=== PATIENT | female | born 1955 | race Caucasian/White ===

== ENCOUNTER → 2018-01-06 11:22 | Outpatient (CLI) | payer MEDICARE, OTHER, SELFPAY ==
[2018-01-06 12:56] LABS: HCT 34.9 % (36.0-46.0); HGB 12.1 g/dL (12.0-15.5); Mean Corp. HGB Concentration 34.7 g/dL (32.0-36.0); Mean Corpuscular Hemoglobin 28.2 pg (27.0-33.0); Mean Corpuscular Volume 81.4 fL (80-95); Mean Platelet Volume 9.2 fL (8.0-11.0); Platelet Count 335 x1000/uL (130-400); RBC 4.29 m/cumm (4.00-5.20); RBC Distribution Width 12.5 % (11.7-14.6); White Blood Cell Count 4.88 k/cumm (4.4-10.8)
[2018-01-06 13:06] LABS: ALT 30 U/L (12-78); AST 25 U/L (15-37); Albumin 3.5 g/dL (3.4-5.0); Alkaline Phosphatase 137 U/L (46-116); Anion Gap 8.5 mmol/L (3-11); BUN 7 mg/dL (7-18); Bilirubin, Total 0.3 mg/dL (0.2-1.0); CO2 29.5 mmol/L (21.0-32.0); CREATININE 0.51 mg/dL (0.55-1.02); Chloride 103 mmol/L (98-107); FREE T4 2.04 ng/dL (0.76-1.46); Glucose 95 mg/dL (70-100); Hemoglobin A1C 6.5 % (4.5-6.2); Sodium 141 mmol/L (136-145); Total Protein 6.8 g/dL (6.4-8.2)
[2018-01-06 13:16] LABS: COMMENT (LAB VIEW ONLY) 126.96 mg/dL; Microalb ug/mg Crea 27.3 ug/mg Cr
[2018-01-06 13:31] LABS: Vitamin D 25 Total 39.2 ng/ml (30-100)
[2018-01-06 13:43] LABS: Cholesterol 243 mg/dL (50-200); HDL Cholesterol 41 mg/dL (40-60); LDL CHOLESTEROL 175 mg/dL (<100); Triglyceride 152 mg/dL (30-150)
== END ==
PROVIDERS: PCP Family Medicine; Visit Provider Family Medicine
DX: E03.9 Hypothyroidism, unspecified (principal); E11.9 Type 2 diabetes mellitus without complications; E78.00 Pure hypercholesterolemia, unspecified; I10 Essential (primary) hypertension; E55.9 Vitamin D deficiency, unspecified; E23.0 Hypopituitarism; G40.909 Epilepsy, unspecified, not intractable, without status epilepticus
CPT/HCPCS: 36415; 80053; 80061; 82306; 83721; 85027; 82043; 82570; 83036; 84439

== ENCOUNTER → 2018-01-06 11:43 | Outpatient (REF) | payer MEDICARE, OTHER, SELFPAY ==
--- NOTE | 2018-01-06 11:00 | PAPFT_PTH ---
PATIENT: Jodie Peacock LOC: [facility] U#:[id number] AGE/SX: 70/F ROOM: RE01/06/[address]: Gladys Arenas MD, DC : 1955 BED: DIS: SPEC #: [id number] RECD: 01/06/18 12:48 STATUS: ARIEL KILLIAN #: [id number] ILIA: 01/06/18 11:[address]: Gladys Arenas DEPT: [facility] Cytology RECD BY: Mackenzie Garcia Tissues: 1 - CX/ENDOCX FOR PAP SMEARS Procedures: PAP THIN PREP/UVM Screening HPV DNA PROBE Comments: [id number]
== END ==
LOC: LBN 11:43
PROVIDERS: PCP Family Medicine; Visit Provider Family Medicine
DX: Z12.4 Encounter for screening for malignant neoplasm of cervix (principal); Z11.51 Encounter for screening for human papillomavirus (HPV)
CPT/HCPCS: 88142; 87624

== ENCOUNTER 2018-04-18 12:46 | Outpatient (CLI) | payer MEDICARE, OTHER, SELFPAY ==
[2018-04-18 14:03] LABS: Hemoglobin A1C 5.9 % (4.5-6.2)
== END 2018-04-18 13:06 ==
PROVIDERS: PCP Family Medicine; Visit Provider Family Medicine
DX: E11.9 Type 2 diabetes mellitus without complications (principal)
CPT/HCPCS: 36415; 83036

== ENCOUNTER 2018-08-22 01:38 | Outpatient (CLI) | payer MEDICARE, SELFPAY ==
[2018-08-22 15:03] LABS: TROPONIN-I 6.5 ug/mL (4.0-12.0)
[2018-08-22 15:12] LABS: Hemoglobin A1C 6.4 % (4.5-6.2)
[2018-08-22 15:23] LABS: Vitamin D 25 Total 40.1 ng/ml (30-100)
[2018-08-22 15:28] LABS: FREE T4 1.59 ng/dL (0.76-1.46)
== END 2018-08-22 01:58 ==
PROVIDERS: PCP Family Medicine; Visit Provider Family Medicine
DX: E11.9 Type 2 diabetes mellitus without complications (principal); M85.80 Other specified disorders of bone density and structure, unspecified site; E78.00 Pure hypercholesterolemia, unspecified; D64.9 Anemia, unspecified; G40.909 Epilepsy, unspecified, not intractable, without status epilepticus; Z51.81 Encounter for therapeutic drug level monitoring; E03.9 Hypothyroidism, unspecified
CPT/HCPCS: 36415; 82306; 80156; 83036; 84439

== ENCOUNTER 2019-01-10 01:32 | Outpatient (CLI) | payer MEDICARE, SELFPAY ==
[2019-01-10 08:17] LABS: Hemoglobin A1C 5.9 % (4.5-6.2)
== END 2019-01-10 01:52 ==
PROVIDERS: PCP Family Medicine; Visit Provider Family Medicine
DX: E03.9 Hypothyroidism, unspecified (principal); E11.9 Type 2 diabetes mellitus without complications; E23.0 Hypopituitarism
CPT/HCPCS: 36415; 83036; 84439

== ENCOUNTER 2019-01-23 00:58 | Outpatient (CLI) | payer MEDICARE, SELFPAY ==
--- NOTE | 2019-01-23 15:03 | DI.MAMMO_ITS ---
SYMPTOMS/DIAGNOSIS: SCREENING, Z12.31 MAMMOGRAMS: Mammograms were interpreted according to the usual protocol including computer analysis with CAD system, tomosynthesis and C view imaging. The breasts are of moderate density with fairly symmetrical distribution of fibroglandular tissue. No dominant mass or clumped microcalcification is identified in either breast. Current examination is compared with previous examinations including November 2016 and there has been no gross interval change in appearance in comparison with the previous studies. CONCLUSION: No specific evidence of malignancy at this time. Routine screening examinations are suggested at yearly intervals in this age group according to the ACS/ACR guidelines. Category 1, breast density category B. MQSA ASSESSMENT OF FINDINGS: Negative. Category 1. Patient will receive a letter notifying them of these results. BI-RADS category B. There are scattered areas of fibroglandular density.
== END 2019-01-23 01:18 ==
PROVIDERS: PCP Family Medicine; Visit Provider Family Medicine
DX: Z12.31 Encounter for screening mammogram for malignant neoplasm of breast (principal)
CPT/HCPCS: 77063; 77067

== ENCOUNTER 2019-12-19 03:44 | Outpatient (CLI) | payer MEDICARE, SELFPAY ==
[2019-12-19 08:17] LABS: HCT 35.2 % (36.0-46.0); Mean Corp. HGB Concentration 34.1 g/dL (32.0-36.0); Mean Corpuscular Volume 82.1 fL (80-95); Mean Platelet Volume 8.5 fL (8.0-11.0); Platelet Count 369 x1000/uL (130-400); RBC 4.29 m/cumm (4.00-5.20); RBC Distribution Width 12.8 % (11.7-14.6); White Blood Cell Count 5.39 k/cumm (4.4-10.8)
[2019-12-19 08:44] LABS: ALT 23 U/L (14-59); AST 19 U/L (15-37); Albumin 3.5 g/dL (3.4-5.0); Alkaline Phosphatase 113 U/L (46-116); Anion Gap 7.8 mmol/L (3-11); BUN 6 mg/dL (7-18); Bilirubin, Total 0.3 mg/dL (0.2-1.0); CO2 29.2 mmol/L (21.0-32.0); CREATININE 0.58 mg/dL (0.55-1.02); Calcium 8.8 mg/dL (8.5-10.1); Calculated LDL 183 mg/dL (<100); Chloride 103 mmol/L (98-107); Cholesterol 250 mg/dL (<200); Glucose 94 mg/dL (74-106); HDL Cholesterol 48 mg/dL (40-60); Potassium 4.2 mmol/L (3.5-5.1); Sodium 140 mmol/L (136-145); Total Protein 6.4 g/dL (6.4-8.2); Triglyceride 96 mg/dL (<150)
[2019-12-19 09:04] LABS: FREE T4 1.26 ng/dL (0.76-1.46)
[2019-12-21 04:53] LABS: Vitamin D 25 Total 32.4 ng/ml (30-100)
== END 2019-12-19 04:04 ==
PROVIDERS: PCP Family Medicine; Visit Provider Family Medicine
DX: E03.9 Hypothyroidism, unspecified (principal); E11.9 Type 2 diabetes mellitus without complications; G40.909 Epilepsy, unspecified, not intractable, without status epilepticus; I10 Essential (primary) hypertension; M85.80 Other specified disorders of bone density and structure, unspecified site
CPT/HCPCS: 36415; 80053; 80061; 82306; 85027; 83036; 84439

== ENCOUNTER 2020-07-18 17:17 | Emergency (ER) | payer MEDICARE, SELFPAY ==
[2020-07-18] VITALS (19 sets, daily range): BP systolic 123–159; BP diastolic 51–92; PULSE 61–71; RESP 12–23; TEMP 36.6; O2SAT 97–100
--- NOTE | 2020-07-18 17:30 | DI.CT_ITS ---
EXAM: CT BRAIN NECK CTA CLINICAL HISTORY: Hx pituitary tumor, L sided headache. TECHNIQUE: Imaging Protocol: Axial CT angiography was performed with multi-slice acquisition and mu lti-planar and/or 3D reconstructions. CONTRAST MATERIAL: Intravenous: Omnipaque 350 Contrast volume:85 cc COMPARISON: No exams were available for comparison FINDINGS: CT Head W/O and w: Ventricles and Extra axial spaces: Normal in size and morphology for the patient's age. Hemorrhage: None. Cerebral parenchyma: Normal. Midline shift: None. Brainstem/Cerebellum: Normal. Calvarium: Normal. Visualized Paranasal sinuses/Mastoids: Clear. Soft Tissues: Unremarkable. Pituitary: 11 x 15 x 12 millimeter hyperdense mildly enhancing mass within the sella, consistent with a pituitary macroadenoma. Orbits: Unremarkable. CTA Brain W: Internal Carotid Arteries: Petrous: Normal. Cavernous: Normal. Cerebral: Normal. Middle Cerebral Arteries: Right: No aneurysm, occlusion or significant stenosis. Left: No aneurysm, occlusion or significant stenosis. Anterior Cerebral Arteries: Right: No aneurysm, occlusion or significant stenosis. Left: No aneurysm, occlusion or significant stenosis. Posterior cerebral Arteries: Right: No aneurysm, occlusion or significant stenosis. Left: No aneurysm, occlusion or significant stenosis. Vertebral Arteries: Right: No aneurysm, occlusion or significant stenosis. Left: No aneurysm, occlusion or significant stenosis. Basilar Artery: No aneurysm, occlusion or significant stenosis. CTA Neck W: Common Carotid: Right: No aneurysm, occlusion or significant stenosis. Left: No aneurysm, occlusion or significant stenosis. External Carotid: Right: No aneurysm, occlusion or significant stenosis. Left: No aneurysm, occlusion or significant stenosis. Internal Carotid: Right: No aneurysm, occlusion or significant stenosis. Left: No aneurysm, occlusion or significant stenosis. Vertebral Artery: Right: No aneurysm, occlusion or significant stenosis. Left: No aneurysm, occlusion or significant stenosis. Lung Apices: Normal. Bones: Normal. Soft Tissues: Normal. IMPRESSION: 1. Normal CTA examination of the [place]. 2. 11 x 15 x 12 millimeter pituitary mass, otherwise unremarkable CT Head. 3. Normal CTA examination of the neck. RADIATION DOSE DELIVERED: 1,902.59mGy.cm Total DLP DATA REPOSITORY: All CT scans at this facility are submitted to the National Radiology Data Registry (NRDR) Dose Index Registry (DIR) with the [employer] (ACR). RADIATION OPTIMIZATION: All CT scans at this facility use at least one of these dose optimization te chniques: automated exposure control; mA and/or kV adjustment per patient size (includes targeted exa ms where dose is matched to clinical indication); or iterative reconstruction.
--- NOTE | 2020-07-18 17:31 | ED.GENADUL_ITS ---
Discharge Plan Discharge Details Chief Complaint: Headache Primary Care Provider: Gladys Arenas ED Provider: Carter Bermudez Home Meds and New Rx's Prescriptions: No Action hydrocortisone 20 mg tablet 20 mg PO DAILY Qty: 90 RF: 12 lovastatin 40 mg tablet 80 mg PO HS Qty: 180 RF: 12 carbamazepine [Epitol] 200 mg tablet 200 mg PO TID Qty: 270 RF: 12 albuterol sulfate [ProAir HFA] 90 mcg/actuation HFA aerosol inhaler 2 puff Inhalation Q4H PRN Qty: 1 RF: 12 levothyroxine 137 mcg tablet 137 mcg PO DAILY Qty: 90 RF: 11 fluticasone propion-salmeterol [Wixela Inhub] 250-50 mcg/dose blister with device 1 inh IH DAILY Qty: 180 RF: 5 acetaminophen 500 mg Tablet 1,000 mg PO Q6H PRNRF: 0 Medical Decision Making 65-year-old female with a history of pituitary tumor presents with 3 days of left retroauricular headache which been constant and moderate to severe. She felt unsteadiness of gait today. She did not fall or injure herself. She is not had a fever or stiff neck. She arrives to the ER with blood pressure 158/88, afebrile, oxygenating normally with no cranial nerve deficits. She reported unsteadiness of gait and when asked to stand at the bedside By wax established, patient given acetaminophen, 2 mg of morphine, 50 mg of Solu-Cortef as well as Zofran. Referred for laboratory testing and CT images. CBC reveals a white count of 5, hematocrit 36, platelets 316. Sodium 135, potassium 3.6, chloride 98, BUN 6, creatinine 0.6. CT with and without IV contrast of the head and neck obtained which shows an 11 x 15 x 12 mm pituitary mass. Otherwise noted to be unremarkable. Patient observed and improved following medications and fluids. She no longer feels unsteadiness of gait as she had reported initially. She is able stand at the bedside and Romberg exam was negative. HPI General Mode of arrival: ambulatory . Date/Time Provider Initiated Documentation: 07/18/20 17:21 . Limitations to Documentation: no limitations . Information obtained by: patient . History of Present Illness 65 year old F presents to the emergency department with the chief complaint of Left retroauricular headache, described as severe, Quality is described as constant, and is localized to the head and left. Patient reports no radiation. Patient started experiencing this day(s) and it has been constant. No relieving factors improve symptom(s), No exacerbating factors reported . Patient notes denies nausea/vomiting and seizure. Related Data Home Medications Medication Instructions Recorded Confirmed albuterol sulfate 90 mcg/actuation 2 puff INHALATION Q4H PRN #1 11/03/19 07/18/20 aerosol inhaler canister carbamazepine 200 mg tablet 200 mg PO TID #270 tab-cap 11/03/19 07/18/20 hydrocortisone 20 mg tablet 20 mg PO DAILY #90 tab-cap 11/03/19 07/18/20 lovastatin 40 mg tablet 80 mg PO HS #180 tab-cap 11/03/19 07/18/20 levothyroxine 137 mcg tablet 137 mcg PO DAILY #90 tab-cap 11/15/19 07/18/20 fluticasone 250 mcg-salmeterol 50 1 inh IH DAILY #180 ea 04/25/20 07/18/20 mcg/dose blistr powdr for inhalation acetaminophen 1,000 mg PO Q6H PRN 07/18/20 07/18/20 Previous Rx's Medication Instructions Recorded albuterol sulfate 90 mcg/actuation 2 puff INHALATION Q4H PRN #1 11/03/19 aerosol inhaler canister carbamazepine 200 mg tablet 200 mg PO TID #270 tab-cap 11/03/19 hydrocortisone 20 mg tablet 20 mg PO DAILY #90 tab-cap 11/03/19 lovastatin 40 mg tablet 80 mg PO HS #180 tab-cap 11/03/19 levothyroxine 137 mcg tablet 137 mcg PO DAILY #90 tab-cap 11/15/19 fluticasone 250 mcg-salmeterol 50 1 inh IH DAILY #180 ea 04/25/20 mcg/dose blistr powdr for inhalation Allergies Allergy/AdvReac Type Severity Reaction Status Date / Time aspirin Allergy Intermediate Hives Unverified 07/18/20 17:28 chlordiazepoxide Allergy Intermediate Hives Unverified 07/18/20 17:28 ciprofloxacin Allergy Intermediate Hives Unverified 07/18/20 17:28 diazepam Allergy Intermediate Hives Unverified 07/18/20 17:28 prochlorperazine Allergy Intermediate Hives Unverified 07/18/20 17:28 Influenza Virus Vaccines Allergy Mild Unverified 07/18/20 17:28 azithromycin [From Zithromax] AdvReac Severe Stomach Unverified 07/18/20 17:28 benzonatate [Benzonatate] AdvReac Severe Unverified 07/18/20 17:28 illness/vomiting bisacodyl AdvReac Rectal Unverified 07/18/20 17:28 bleeding erythromycin base AdvReac Psychosis Unverified 07/18/20 17:28 [Erythromycin Base] phenytoin AdvReac N/V Unverified 07/18/20 17:28 Hymenoptera Allergy Hives Uncoded 07/18/20 17:28 General Stated Complaint: Headache AYAD: 2 Review of Systems Narrative: No fall or injury. [place] unsteadiness of gait today. No fever. [place] nauseated but no vomiting. 6 systems reviewed and otherwise negative. 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 ANTHONY LACEY Reflux esophagitis 02/25/15; EGD; DEEPTHI BAUTISTA Sprain of ankle (12/30/09) Vitamin D deficiency (09/16/12) Surgical History Colonoscopy - MAC (02/24/11) 30 CM TUBULAR ADENOMA [address] ANTHONY LACEY COLONOSCOPY/EGD W/MAC (02/25/15) DR.CHRIS LACEY Dilation and curettage (~1989) Status post dilation and curettage Family History (Updated 01/11/19 @ 10:35 by Judson Bansal) Mother , 79 Essential hypertension Heart disease Hyperlipidemia Bladder cancer Father , DEFECT at age 44. Essential hypertension Sister , SPINA BIFIDA No problems noted. Brother Essential hypertension Heart disease Paternal Grandfather , 82 Lung cancer Maternal Grandfather , Electorcuted Throat cancer Paternal Grandmother , 79 Diabetes Essential hypertension Heart disease Maternal Grandmother , 79 Diabetes Dementia Social History (Updated 01/11/19 @ 10:33 by Judson Bansal) Smoking/Tobacco Use Status: Never Smoking risk assessment performed?: Yes Alcohol Intake: never Drug use: Never Substance use type: does not use Caregiver/Support person: No Household members: spouse Housing: apartment Do you need help understanding health information?: Rarely Pets and animals: Yes Pets and animals: cat(s) Sexually active: Yes Do you think of yourself as: straight/heterosexual Current gender identity: female What is your relationship status?: How often do you talk on the phone with friends or family?: three or more times per week How often do you get together with friends or relatives?: three or more times per week How often do you attend jainism or latter-day services?: 4 or more times per year Do you belong to any clubs or organized social groups?: yes Panel score (0-1 are the most socially isolated patients): 4 What type of physical activity do you participate in: decline to answer Duration: 30-45 minutes/day Frequency: 5-6 times per week Radha/Amish: [employer] Special radha needs: No Seatbelt use: always Helmet use: Yes Helmet use: always 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 Pleasant, well groomed, interactive. HEAD: Normocephalic, atraumatic ENT: Mucous membranes moist, oropharynx unremarkable, External ear exam unremarkable EYES: PERRL, EOMI NECK: Full ROM, no RACHAEL, no menigismus CHEST/RESP: Nontender, clear to auscultation bilateral, no wheeze/rhonchi/rales CARDIOVASCULAR: RRR, no murmur, rub tracy. 2+ Rad pulse bilateral ABDOMEN: Soft, nontender, no mass. +Bowel sounds EXT: Full ROM, no edema, no rash Neuro: Grossly normal neurologic exam, conversant, interactive. Cranial nerves II through XII intact. No slurred speech. Psych: Speech fluent, thoughts congruent, affect normal Course Vital Signs Vital signs: Vital Signs Temperature 36.6 C 07/18/20 17:23 Pulse 71 07/18/20 17:23 Respiratory Rate 16 07/18/20 17:23 Blood Pressure 158/88 H 07/18/20 17:23 Pulse Oximetry 99 07/18/20 17:23 Temperature 36.6 C 07/18/20 17:23 Temperature Source Temporal Artery Scan 07/18/20 17:23 Pulse 71 07/18/20 17:23 Respiratory Rate 16 07/18/20 17:23 Respiratory Effort Non-Labored 07/18/20 17:27 Blood Pressure 158/88 H 07/18/20 17:23 Blood Pressure Position Supine 07/18/20 17:23 Pulse Oximetry 99 07/18/20 17:23 Oxygen Delivery Method Room Air 07/18/20 17:23 Oxygen Flow Rate 0 07/18/20 17:23 Pain Level 10 07/18/20 17:23
[2020-07-18 17:39] LABS: Abs Immature Grans 0.02 10^3/uL (0.0-0.06); Absolute Basophil Count 0.03 10^3/uL (0.0-0.2); Absolute Eosinophil Count 0.14 10^3/uL (0.0-0.7); Absolute Monocyte Count 0.53 10^3/uL (0.1-0.8); Absolute Neutrophil Count 2.16 10^3/uL (1.2-6.7); Basophils % 0.6; Eosinophils % 2.6; HCT 36.5 % (36.0-46.0); HGB 12.8 g/dL (11.2-15.7); Immature Grans % 0.4; Lymphocytes % 46.5; MCH 28.3 pg (27.0-33.0); MCHC 35.1 % (32.0-36.0); MCV 80.8 fL (80-95); MPV 8.3 fL (8.0-11.0); Monocytes % 9.9; Nucleated RBC 0 %; Platelet Count 316 10^3/uL (130-400); RBC 4.52 10^6/uL (3.93-5.22); RDW 12.2 % (11.7-14.6); RDW-SD 35.8 fL; WBC 5.38 10^3/uL (4.4-10.8)
[2020-07-18] MEDS: ACETAMINOPHEN 1,000 MG/100 ML BTL 400 MG IVPB (17:40)
[2020-07-18 17:54] LABS: ALT 22 U/L (14-59); AST 20 U/L (15-37); Albumin 3.8 g/dL (3.4-5.0); Alkaline Phosphatase 146 U/L (46-116); Anion Gap 6.6 mmol/L (3-11); BUN 6 mg/dL (7-18); Bilirubin, Total 0.2 mg/dL (0.2-1.0); CO2 30.4 mmol/L (21.0-32.0); CREATININE 0.6 mg/dL (0.55-1.02); Chloride 98 mmol/L (98-107); Glucose 91 mg/dL (74-106); Potassium 3.6 mmol/L (3.5-5.1); Sodium 135 mmol/L (136-145); Total Protein 7.8 g/dL (6.4-8.2)
[2020-07-18] MEDS: Omnipaque 350 MG/ML 100 ML BTL IJ (17:57)
[2020-07-18] MEDS: Normal Saline - Diluent 50 ML VIAL IV (17:58)
[2020-07-18 18:01] LABS: PTT Activated 27.9 sec (21.0-27.5); Prothrombin Time 10.4 sec (9.3-11.0)
[2020-07-18] MEDS: Hydrocortisone SOD SUC. 100 MG VIAL 50 MG IVP (18:46)
--- NOTE | 2020-07-18 18:53 | DI.VRAD_ITS ---
PROCEDURE INFORMATION: Exam: CT Angiography Head With Contrast Exam date and time: 07/18/2020 5:42 PM Age: 65 years old Clinical indication: Mass, lump, or swelling in head; Patient HX: Patient sts HX of pituitary tumor, left sided head ache, and left sided ear pain. ; Additional info: Included are pre head wo images, cta head and neck, and also a 5 minute head delay. TECHNIQUE: Imaging protocol: Computed tomography angiography of the head with intravenous contrast. 3D rendering (Not supervised by radiologist): MIP and/or 3D reconstructed images were created by the technologist. Radiation optimization: All CT scans at this facility use at least one of these dose optimization techniques: automated exposure control; mA and/or kV adjustment per patient size (includes targeted exams where dose is matched to clinical indication); or iterative reconstruction. Contrast material: OMNI 350; Contrast volume: 85 ml; Contrast route: INTRAVENOUS (IV); COMPARISON: No relevant prior studies available. FINDINGS: ANTERIOR CIRCULATION: Right internal carotid artery: Unremarkable. Intracranial segment is patent with no significant stenosis. No aneurysm. Right middle cerebral artery: Unremarkable. No occlusion or significant stenosis. No aneurysm. Right anterior cerebral artery: Unremarkable. No occlusion or significant stenosis. No aneurysm. Left internal carotid artery: Unremarkable. Intracranial segment is patent with no significant stenosis. No aneurysm. Left middle cerebral artery: Unremarkable. No occlusion or significant stenosis. No aneurysm. Left anterior cerebral artery: Unremarkable. No occlusion or significant stenosis. No aneurysm. POSTERIOR CIRCULATION: Right vertebral artery: Unremarkable. No occlusion or significant stenosis. No aneurysm. Left vertebral artery: Unremarkable. No occlusion or significant stenosis. No aneurysm. Basilar artery: Congenitally small. No occlusion or significant stenosis. No aneurysm. Right posterior cerebral artery: circulation. No occlusion or significant stenosis. No aneurysm. Left posterior cerebral artery: circulation. No occlusion or significant stenosis. No aneurysm. IMPRESSION: No large vessel aneurysm, stenosis or occlusion within the intracranial arteries. PROCEDURE INFORMATION: Exam: CT Head Without And With Contrast Exam date and time: 07/18/2020 5:42 PM Clinical indication: Mass, lump, or swelling in head; Patient HX: Patient sts HX of pituitary tumor, left sided head ache, and left sided ear pain. ; Additional info: Included are pre head wo images, cta head and neck, and also a 5 minute head delay. TECHNIQUE: Imaging protocol: Computed tomography of the head without and with intravenous contrast. COMPARISON: No relevant prior studies available. FINDINGS: Brain: A mildly enhancing mass is seen within the pituitary gland measuring 11 mm in depth, 15 mm in width, and 12 mm in craniocaudal dimension. This is hyperdense on the precontrast images and is smoothly marginated. The brain parenchyma is normal appearance. No intracranial hemorrhage. No evidence for acute cortical infarct. No midline shift. Cerebral ventricles: No hydrocephalus. Bones/joints: Unremarkable. No acute fracture. Paranasal sinuses: Unremarkable. Well aerated. No fluid level. Mastoid air cells: Visualized mastoid air cells are well aerated. Soft tissues: Unremarkable. IMPRESSION: 1. 11 x 15 x 12 mm pituitary mass, which may represent a pituitary adenoma. 2. Otherwise, normal MRI of the brain with and without contrast. PROCEDURE INFORMATION: Exam: CT Angiography Neck With Contrast Exam date and time: 07/18/2020 5:42 PM Age: 65 years old Clinical indication: Mass, lump, or swelling in head; Patient HX: Patient sts HX of pituitary tumor, left sided head ache, and left sided ear pain. ; Additional info: Included are pre head wo images, cta head and neck, and also a 5 minute head delay. TECHNIQUE: Imaging protocol: Computed tomography angiography of the neck with intravenous contrast. 3D rendering (Not supervised by radiologist): MIP and/or 3D reconstructed images were created by the technologist. Radiation optimization: All CT scans at this facility use at least one of these dose optimization techniques: automated exposure control; mA and/or kV adjustment per patient size (includes targeted exams where dose is matched to clinical indication); or iterative reconstruction. Contrast material: OMNI 350; Contrast volume: 85 ml; Contrast route: INTRAVENOUS (IV); COMPARISON: No relevant prior studies available. FINDINGS: Right common carotid artery: No stenosis. No dissection or occlusion. Right internal carotid artery: No stenosis of the extracranial segment. No dissection or occlusion. Right external carotid artery: No occlusion or stenosis of the origin. Right vertebral artery: No stenosis. No dissection or occlusion. Left common carotid artery: No stenosis. No dissection or occlusion. Left internal carotid artery: No stenosis of the extracranial segment. No dissection or occlusion. Left external carotid artery: No occlusion or stenosis of the origin. Left vertebral artery: No stenosis. No dissection or occlusion. Bones/joints: No acute fracture. Soft tissues: Normal. No significant soft tissue swelling. Lungs: The lung apices are well aerated. IMPRESSION: No dissection, stenosis or occlusion within the extracranial arteries. REFERENCES: NASCET CRITERIA. The degree of internal carotid artery stenosis is based on NASCET criteria. Normal is no stenosis. Mild is less than 50% stenosis. Moderate is 50-69% stenosis. Severe is 70% to 99% stenosis. Total occlusion is no detectable patent lumen. Dictated and Authenticated by: Joelle Fenton MD. Ordering:DARREN Machado MD
[2020-07-18] MEDS: Ondansetron 4 MG/2 ML VIAL IVP (18:55)
--- NOTE | 2020-07-19 04:45 | NUR.NOTE ---
Nursing Note: Referral faxed 07/19/20 @[phone] libl
== END 2020-07-18 20:02 | disposition home or self-care (01) ==
PROVIDERS: Emergency Provider Emergency Medicine; PCP Family Medicine
DX: R26.81 Unsteadiness on feet (principal); R51.9 Headache, unspecified; R11.0 Nausea
CPT/HCPCS: 36415; 70496; 70498; 80053; 96365; 96375; 99285; 85025; 85610; 85730; 99284; J0131; J1720; J2405; J3490

== ENCOUNTER 2021-02-12 04:14 | Outpatient (CLI) | payer MEDICARE, SELFPAY ==
[2021-02-12 11:03] LABS: ALT 21 U/L (14-59); AST 19 U/L (15-37); Albumin 3.5 g/dL (3.4-5.0); Alkaline Phosphatase 121 U/L (46-116); Anion Gap 7.9 mmol/L (3-11); BUN 9 mg/dL (7-18); Bilirubin, Total 0.3 mg/dL (0.2-1.0); CO2 28.1 mmol/L (21.0-32.0); CREATININE 0.5 mg/dL (0.55-1.02); Chloride 106 mmol/L (98-107); FREE T4 1.15 ng/dL (0.76-1.46); Glucose 179 mg/dL (74-106); Hemoglobin A1C 5.8 % (<5.7); Potassium 3.6 mmol/L (3.5-5.1); Sodium 142 mmol/L (136-145); Total Protein 6.6 g/dL (6.4-8.2)
== END 2021-02-12 04:15 | disposition home or self-care (01) ==
LOC: LBO 04:14
PROVIDERS: PCP Family Medicine; Visit Provider Family Medicine
DX: E03.9 Hypothyroidism, unspecified (principal); E11.9 Type 2 diabetes mellitus without complications; E23.0 Hypopituitarism
CPT/HCPCS: 36415; 80053; 83036; 84439

== ENCOUNTER 2021-03-06 12:45 | Outpatient (REF) | payer MEDICARE, SELFPAY ==
--- NOTE | 2021-03-06 11:00 | PAPFT_PTH ---
PATIENT: Jodie Peacock LOC: [facility] U#:[id number] AGE/SX: 65/F ROOM: RE03/06/[address]: Gladys Arenas MD, DC : 1955 BED: DIS: 03/06/2021 SPEC #: [id number] RECD: 03/06/21 12:57 STATUS: ARIEL REQ #: [id number] ILIA: 03/06/21 11:[address]: Gladys Arenas DEPT: [facility] Cytology RECD BY: Mackenzie Garcia Tissues: 1 - CX/ENDOCX FOR PAP SMEARS Procedures: PAP THIN PREP/UVM Screening HPV DNA PROBE Comments: [id number]
== END 2021-03-06 12:46 | disposition home or self-care (01) ==
LOC: LBN 12:45
PROVIDERS: PCP Family Medicine; Visit Provider Family Medicine
DX: Z12.4 Encounter for screening for malignant neoplasm of cervix (principal); Z11.51 Encounter for screening for human papillomavirus (HPV); Z01.419 Encounter for gynecological examination (general) (routine) without abnormal findings
CPT/HCPCS: 88142; 87624

== ENCOUNTER 2021-03-28 01:06 | Outpatient (CLI) | payer MEDICARE, SELFPAY ==
--- NOTE | 2021-03-28 07:30 | DI.MAMMO_ITS ---
Exam(s) MAMMO SCREENING EXAM: MAMMO SCREENING CLINICAL HISTORY: screening,Z12.39 TECHNIQUE: Bilateral full field digital CC and MLO mammographic images were obtained with 3D tomosyn thesis and utilizing computer aided detection (CAD). COMPARISON: Available for comparison. FINDINGS: Masses/Architectural Distortion: None seen. Microcalcifications: No suspicious pleomorphic-type are seen. Skin Thickening/Nipple Retraction: None. IMPRESSION: 1. No significant interval change with no specific features of malignancy noted. 2. Unless there is more urgent need, screening mammography is recommended, as per [employer] guidelines. BI-RADS Category 1 - Negative Breast Density - Category B - Scattered areas of fibroglandular density Breast density category C or D implies that the patient has dense breast tissue. Dense breast tissue is very common and is not abnormal but dense breast tissue can make it harder to find cancer on a ma mmogram. Also, dense breast tissue may increase their breast cancer risk. This information about the result of the mammogram report was provided to the patient to raise their awareness. Use this report when you speak with the patient about their risks for breast cancer, which includes their family hist ory. At that time, you may recommend for more screening tests (Ultrasound or MRI) as they might be us eful based on their risk. A negative radiographic report should not delay biopsy if a dominant or clinically suspicious mass is present. Up to ten percent of cancers are not identified on mammography. A negative report may reinforce clinical impression. Adenosis and dense breasts may obscure an underlying neoplasm. False positive reports average 6 to 10%. Patient will receive a letter notifying them of these results.
== END 2021-03-28 01:26 ==
PROVIDERS: PCP Family Medicine; Visit Provider Family Medicine
DX: Z12.31 Encounter for screening mammogram for malignant neoplasm of breast (principal)
CPT/HCPCS: 77063; 77067

== ENCOUNTER 2021-04-18 00:50 | Outpatient (CLI) | payer MEDICARE, SELFPAY ==
--- NOTE | 2021-04-18 14:50 | DI.RAD_ITS ---
Exam(s) XR HIP LT COMPLETE AP PELVIS EXAM: XR HIP LT COMPLETE AP PELVIS CLINICAL HISTORY: prolonged hip pain,c/w advancing OA, no trauma,m25.552 TECHNIQUE: COMPARISON: No exams were available for comparison FINDINGS: Three views were obtained. The SI joints show minimal degenerative changes. Cartilaginous joint [place] of both hips are moderately narrowed, left greater than right. There are prominent marginal oste ophytes of the acetabulum and femoral head on the left. Minimal acetabular marginal osteophyte forma tion noted on the right. IMPRESSION: Moderate to severe DJD left hip. Moderate DJD right hip. RADIATION DOSE DELIVERED: Total DLP
== END 2021-04-18 01:10 ==
LOC: DI 00:50
PROVIDERS: PCP Family Medicine; Visit Provider Family Medicine
DX: M25.552 Pain in left hip (principal); M16.0 Bilateral primary osteoarthritis of hip
CPT/HCPCS: 73502

== ENCOUNTER 2022-03-27 01:47 | Outpatient (CLI) | payer MEDICARE, SELFPAY ==
[2022-03-27 10:57] LABS: HCT 36.4 % (36.0-46.0); HGB 12.5 g/dL (11.2-15.7); MCH 27.9 pg (27.0-33.0); MCHC 34.3 % (32.0-36.0); MCV 81 fL (80-95); MPV 8.6 fL (8.0-11.0); Platelet Count 297 10^3/uL (130-400); RBC 4.48 10^6/uL (3.93-5.22); RDW-SD 38.3 fL; WBC 6.16 10^3/uL (4.4-10.8)
[2022-03-27 11:19] LABS: Hemoglobin A1C 6.5 % (<5.7)
[2022-03-27 11:56] LABS: Calculated LDL 184 mg/dL (<100); Cholesterol 256 mg/dL (<200); HDL Cholesterol 58 mg/dL (40-60); Triglyceride 74 mg/dL (<150)
[2022-03-27 12:23] LABS: FREE T4 1.53 ng/dL (0.76-1.46)
== END 2022-03-27 01:48 | disposition home or self-care (01) ==
LOC: LBO 01:48
PROVIDERS: PCP Family Medicine; Visit Provider Family Medicine
DX: E11.9 Type 2 diabetes mellitus without complications (principal); Z00.00 Encounter for general adult medical examination without abnormal findings; E78.00 Pure hypercholesterolemia, unspecified; G40.909 Epilepsy, unspecified, not intractable, without status epilepticus
CPT/HCPCS: 36415; 80061; 85027; 83036; 84439

== ENCOUNTER 2023-03-02 02:54 | Outpatient (CLI) | payer MEDICARE, SELFPAY ==
[2023-03-02 12:38] LABS: Hemoglobin A1C 6.5 % (<5.7)
[2023-03-02 12:59] LABS: ALT 16 U/L (14-59); AST 19 U/L (15-37); Albumin 3.6 g/dL (3.4-5.0); Alkaline Phosphatase 108 U/L (46-116); Anion Gap 9.4 mmol/L (3-11); BUN 5 mg/dL (7-18); Bilirubin, Total 0.4 mg/dL (0.2-1.0); CO2 28.6 mmol/L (21.0-32.0); CREATININE 0.8 mg/dL (0.55-1.02); Calcium 9.4 mg/dL (8.5-10.1); Chloride 103 mmol/L (98-107); Estimated GFR 81.21 (mL/min/1.73m2); FREE T4 1.33 ng/dL (0.76-1.46); Glucose 134 mg/dL (74-106); Potassium 3.8 mmol/L (3.5-5.1); Sodium 141 mmol/L (136-145); Total Protein 7.5 g/dL (6.4-8.2)
== END 2023-03-02 02:55 | disposition home or self-care (01) ==
LOC: LBO 02:54
PROVIDERS: PCP Family Medicine; Visit Provider Family Medicine
DX: E03.9 Hypothyroidism, unspecified (principal); E11.65 Type 2 diabetes mellitus with hyperglycemia; E23.0 Hypopituitarism; G40.909 Epilepsy, unspecified, not intractable, without status epilepticus
CPT/HCPCS: 36415; 80053; 83036; 84439

== ENCOUNTER 2024-01-09 13:52 | Emergency (ER) | payer MEDICARE, SELFPAY ==
[2024-01-09 13:58] VITALS: BP 123/48; PULSE 70; RESP 16; TEMP 37; O2SAT 96
[2024-01-09 14:07] VITALS: BP 123/48; PULSE 70; RESP 16; TEMP 37; O2SAT 96
--- NOTE | 2024-01-09 14:12 | ED.GENADUL_ITS ---
Discharge Plan Disposition Patient Disposition: Home Condition: Stable Discharge Details Clinical Impression: Dental infection Primary Care Provider: Gladys Arenas ED Provider: Denver Cruz Home Meds and New Rx's Prescriptions: New amoxicillin-pot clavulanate 875-125 mg tablet 1 tab PO BID 10 Days Qty: 20 0RF chlorhexidine gluconate 0.12 % mouthwash 15 ml mucous membrane BID Qty: 1893 0RF Continued carbamazepine [Epitol] 200 mg tablet 200 mg PO TID Qty: 270 12RF fluticasone propion-salmeterol [Wixela Inhub] 250-50 mcg/dose blister with device 1 inh IH DAILY Qty: 180 5RF levothyroxine 137 mcg tablet 137 mcg PO DAILY Qty: 90 1RF hydrocortisone 20 mg tablet 20 mg PO DAILY Qty: 90 8RF albuterol sulfate [ProAir HFA] 90 mcg/actuation HFA aerosol inhaler 2 puff Inhalation Q4H PRN Qty: 1 12RF Discharge Instructions Instructions: Amoxicillin and Clavulanate, Chlorhexidine Gluconate (Oral), Dental Pain ED Additional Instructions: You were seen in the emergency department for your dental infection, I am prescribing Augmentin to treat this infection. I have also sent chlorhexidine to the pharmacy in the [facility]. Please use therapeutic dosing of Tylenol (acetamenophen) & Advil (ibuprofen) in an alternating fashion as follows: Take 1000mg of Tylenol every 6 hours without missing doses- that is 4 times per day. [place] in between the Tylenol dosings, take 400-600mg of Advil also on a 6 hour schedule, that is also 4 times per day. The daily maximum dosing of Tylenol is 4000mg, and the daily maximum dosing of Advil is 2400mg. This is safe to do for weeks. Please note that some common cold medications & prescription pain medications may contain acetamenophen and you need to read OTC drug labels and factor that in to maximum daily dosings. Continue salt water gargles 3 times per day, use homeopathic remedies like close and topical Orajel as needed. Please return to the emergency department for inability to open or close your jaw, excessive vocal changes with muffled voice, excessive drooling and inability to manage her secretions or inability to tolerate p.o. intake. Discharge Data Discharge Date/Time-TO BE ENTERED AT DEPARTURE: 01/09/24 14:32 HPI General Date/Time Provider Initiated Documentation: 01/09/24 14:11 . HPI Narrative: 68 year-old female presents to ED today by POV/ambulating with a chief complaint of dental pain- R lower with onset over the past two days since Wednesday. Quality described as R lower gum pain- throbbing, no radiation to chest pain, shortness of breath, trismus, vocal changes, excessive drooling, facial erythema, endorses mild R lower cheek swelling. Severity is described as moderate. Palliating factors include salt water gargles with some relief. Provoking factors include nothing specific. Patient needs a dental list. Patient not anticoagulated. Related Data Home Medications ?Medication ?Instructions ?Recorded ?Confirmed carbamazepine 200 mg tablet 200 mg PO TID #270 tab-caps 12/31/20 01/09/24 (Epitol) fluticasone 250 mcg-salmeterol 50 1 inh inhalation DAILY #180 ea 01/13/23 01/09/24 mcg/dose blistr powdr for inhalation (Wixela Inhub) levothyroxine 137 mcg tablet 137 mcg PO DAILY #90 tab-caps 01/13/23 01/09/24 albuterol sulfate 90 mcg/actuation 2 puff inhalation Q4H PRN ##1 01/25/23 01/09/24 aerosol inhaler (ProAir HFA) hydrocortisone 20 mg tablet 20 mg PO DAILY #90 tab-caps 01/25/23 01/09/24 amoxicillin 875 mg-potassium 1 tab PO BID 10 days #20 tabs 01/09/24 clavulanate 125 mg tablet chlorhexidine gluconate 0.12 % 15 ml mucous membrane BID #1,893 mL 01/09/24 mouthwash Previous Rx's ?Medication ?Instructions ?Recorded carbamazepine 200 mg tablet 200 mg PO TID #270 tab-caps 12/31/20 (Epitol) fluticasone 250 mcg-salmeterol 50 1 inh inhalation DAILY #180 ea 01/13/23 mcg/dose blistr powdr for inhalation (Wixela Inhub) levothyroxine 137 mcg tablet 137 mcg PO DAILY #90 tab-caps 01/13/23 albuterol sulfate 90 mcg/actuation 2 puff inhalation Q4H PRN ##1 01/25/23 aerosol inhaler (ProAir HFA) hydrocortisone 20 mg tablet 20 mg PO DAILY #90 tab-caps 01/25/23 amoxicillin 875 mg-potassium 1 tab PO BID 10 days #20 tabs 01/09/24 clavulanate 125 mg tablet chlorhexidine gluconate 0.12 % 15 ml mucous membrane BID #1,893 mL 01/09/24 mouthwash Allergies Allergy/AdvReac Type Severity Reaction Status Date / Time aspirin Allergy Intermediate Hives Unverified 01/09/24 14:04 chlordiazepoxide Allergy Intermediate Hives Unverified 01/09/24 14:04 ciprofloxacin Allergy Intermediate Hives Unverified 01/09/24 14:04 diazepam Allergy Intermediate Hives Unverified 01/09/24 14:04 prochlorperazine Allergy Intermediate Hives Unverified 01/09/24 14:04 Influenza Virus Vaccines Allergy Mild Unknown Unverified 01/09/24 14:04 azithromycin (From Zithromax) AdvReac Severe Stomach Unverified 01/09/24 14:04 benzonatate (Benzonatate) AdvReac Severe Unverified 01/09/24 14:04 illness/vomiting bisacodyl AdvReac Rectal Unverified 01/09/24 14:04 bleeding erythromycin base AdvReac Psychosis Unverified 01/09/24 14:04 (Erythromycin Base) phenytoin AdvReac N/V Unverified 01/09/24 14:04 Hymenoptera Allergy Hives Uncoded 01/09/24 14:04 General Stated Complaint: DentalOral AYAD: 4 Review of Systems All systems reviewed & are unremarkable except as noted in HPI and below Exam Narrative Exam Narrative: GENERAL APPEARANCE: Well-nourished, non-toxic, awake and alert, atraumatic, no acute distress. SKIN: Warm, pink, dry, intact, without rashes/lesions/ulcerations. HEAD: Normocephalic, atraumatic, normal hair distribution for gender/age. EYES: Normal conjunctiva, no exudates on lids/lashes. ENT: Nares patent, no circumoral cyanosis, diffuse dental decay with gingival swelling of the right lower jaw, mild facial swelling without erythema, no trismus, no vocal changes, managing secretions well, uvula midline, no palpable gingival abscess NECK: Supple, trachea midline, painless cervical ROM. LUNGS/CHEST: Non-labored respirations, normal A/P diameter, symmetrical expansion, no chest wall deformity HEART (CV/PV): No peripheral edema, no JVD. ABDOMEN: Soft, non-distended, no guarding. MSK: Normal ROM, no swelling/deformity to bilateral UEs or LEs, moving all extremities without weakness, no cyanosis, spine midline without tenderness, normal curvature. NEURO: Mental Status AAOx4 - alert to person, place, time, events No facial droop, no forehead involvement. Motor: No focal weakness - strength 5/5 in bilateral UEs and LEs, proximal and distal, symmetric. Sensory: sensation intact to light touch globally. Gait normal: patient ambulated without ataxia into ED room. PSYCH: euthymic, cooperative, pleasant, appropriate speech Course Vital Signs Vital signs: Vital Signs Temperature 37 C 01/09/24 13:58 Pulse 70 01/09/24 13:58 Respiratory Rate 16 01/09/24 13:58 Blood Pressure 123/48 L 01/09/24 13:58 Pulse Oximetry 96 01/09/24 13:58 Temperature 37 C 01/09/24 14:07 Temperature Source Skin 01/09/24 14:07 Pulse 70 01/09/24 14:07 Respiratory Rate 16 01/09/24 14:07 Respiratory Effort Normal 01/09/24 14:06 Blood Pressure 123/48 L 01/09/24 14:07 Blood Pressure Position Sitting 01/09/24 14:07 Pulse Oximetry 96 01/09/24 14:07 Oxygen Delivery Method Room Air 01/09/24 14:07 Oxygen Flow Rate 0 01/09/24 14:07 Pain Level 9 01/09/24 14:07 Medical Decision Making This dictation utilizes [id number] dictation software and may contain unedited grammatical errors. 68 year-old female presents to ED today by POV/ambulating with a chief complaint of dental pain- R lower with onset over the past two days since Wednesday. Quality described as R lower gum pain- throbbing, no radiation to chest pain, shortness of breath, trismus, vocal changes, excessive drooling, facial erythema, endorses mild R lower cheek swelling. Severity is described as moderate. Palliating factors include salt water gargles with some relief. Provoking factors include nothing specific. Patient needs a dental list. Patients' medical history: Diffuse poor dentition. Family and social history: Noncontributory. Pertinent exam findings / vital signs include diffuse dental decay with gingival swelling of the right lower jaw, mild facial swelling without erythema, no trismus, no vocal changes, managing secretions well, uvula midline, no palpable gingival abscess Differential / pathologies of concern include dental infection, unlikely deep space infection. Diagnostic studies of: -None. Interventions of: -Prescriptions for antibiotics and chlorhexidine. ED Course/Assessment/Plan: 68-year-old female with diffuse dental decay presents with 2 days of right lower jaw swelling, there is no palpable gingival abscess or any parent drainable abscess, has no concerning signs for deep space infection or trismus or excessive drooling, counseled patient on antibiotic therapy and need for follow- up with definitive care with a dentist, prescribed chlorhexidine mouth rinse and discussed various homeopathic's, strict return criteria for developing trismus, difficulty swallowing or managing secretions with vocal changes. Findings not consistent with deep space infection, airway compromise. Disposition of dental infection. Patient verbalized understanding of the plan and return to ED criteria and engaged in shared decision making. Medical Records Medical records reviewed: Yes I reviewed the patient's medical records. Quality:SDOH Health Related Social Needs: Health related social needs inadequate housing Health related social needs details financial, cogniti ve PFSH All Active Problems (Updated 01/09/24 @ 14:21 by CLARISSA Mitchell) Dental infection (Acute) Annual physical exam (Acute) Degenerative joint disease (DJD) of hip (Acute) Anemia (Acute 01/17/13) Vitamin D deficiency (Chronic 09/16/12) Reflux esophagitis (Chronic) 02/25/15; EGD; DEEPTHI BAUTISTA Polyp of colon (Chronic) 1 30CM TUBULAR ADENOMA AND [address] 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, now hypothyroid and amenorrheic since age 20 seizures need stressed dose steroids for illness/surgery Asthma (Chronic) 2003 PFT'S-NORMAL Medical History (Updated 01/09/24 @ 14:21 by CLARISSA Mitchell) Abdominal distension (05/06/15) Breast lump (09/05/13) Grief (11/05/14) Old anterior cruciate ligament disruption (12/30/09) Sprain of ankle (12/30/09) Trochanteric bursitis (09/05/07) Benign hypertension (09/13/12) Acute pain of right shoulder (11/08/17) Surgical History Status post dilation and curettage Dilation and curettage (~1989) Colonoscopy - MAC (02/24/11) 30 CM TUBULAR ADENOMA [address] ANTHONY LACEY COLONOSCOPY/EGD W/MAC (02/25/15) DR.CHRIS LACEY Family History (Updated 06/24/23 @ 17:59 by Akosua Lopes) Mother , 79 Essential hypertension Heart disease Hyperlipidemia Bladder cancer Father , DEFECT at age 44. Essential hypertension Sister , SPINA BIFIDA Alcohol use disorder Diabetes Substance use disorder Brother Essential hypertension Heart disease Diabetes Paternal Grandfather , 82 Lung cancer Maternal Grandfather , Electrocuted Throat cancer Paternal Grandmother , 79 Diabetes Essential hypertension Heart disease Maternal Grandmother , 79 Diabetes Dementia Social History (Updated 06/24/23 @ 17:56 by Akosua Lopes) Smoking/Tobacco Use Status: Never Second Hand Exposure: Yes Smoking risk assessment performed?: Yes Alcohol Intake: never Drug use: Never Substance use type: does not use Adopted: No Caregiver/Support person: No Foster care: No Household members: spouse Housing: apartment Communication Needs: Corrective Lenses Education Level: high school Do you need help understanding health information?: Rarely current occupation: Retired Pets and animals: Yes Pets and animals: cat(s) Sexually active: Yes Do you think of yourself as: straight/heterosexual Current gender identity: female What is your relationship status?: How often do you talk on the phone with friends or family?: twice per week How often do you get together with friends or relatives?: three or more times per week How often do you attend taoism or zoroastrianism services?: 1-3 times per year Do you belong to any clubs or organized social groups?: no Panel score (0-1 are the most socially isolated patients): 2 What type of physical activity do you participate in: walking Duration: 15-30 minutes/day Frequency: 5-6 times per week Radha/Congregational: Day [employer] Special radha needs: Yes (DNR) Agree to transfusion: No Seatbelt use: always Helmet use: Yes Helmet use: always Drive intox or ride w/intox 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
== END 2024-01-09 14:32 | disposition home or self-care (01) ==
PROVIDERS: Emergency Provider Physician Assistant; PCP Family Medicine
DX: K08.89 Other specified disorders of teeth and supporting structures (principal); K04.7 Periapical abscess without sinus; I10 Essential (primary) hypertension
CPT/HCPCS: 99283